=== PATIENT | male | born 1980 | race Caucasian/White ===

== ENCOUNTER → 2016-07-16 | Outpatient (CLI) | payer BC | LOC: KOH-I 10:00 | DX: H44.113 Panuveitis, bilateral (principal); R90.82 White matter disease, unspecified | CPT/HCPCS: 70551; 71020 ==

== ENCOUNTER → 2016-07-31 | Outpatient (CLI) | payer BC | LOC: LAB 11:03 | DX: H44.113 Panuveitis, bilateral (principal) | CPT/HCPCS: 36415; 82164; 85549; 86780; 86812 ==